=== PATIENT | female | born 1960 | race Caucasian/White ===

== ENCOUNTER → 2020-11-28 | Outpatient (REF) | payer OTHER ==
[2020-11-28 14:05] LABS: HEMATOCRIT 43.4 % (36.0-47.0); HEMOGLOBIN 13.9 g/dl (12.0-15.5); MEAN CORPUSCULAR HEMOGLOBIN 27.1 pg (27.0-33.0); MEAN CORPUSCULAR VOLUME 84.8 fl (80.0-96.0); PLATELET COUNT, AUTOMATED 292 10^3/uL (150-450); RED BLOOD COUNT 5.12 10^6/uL (4.00-5.40); WHITE BLOOD COUNT 5.6 10^3/uL (4.0-10.0)
[2020-11-28 15:19] LABS: ALBUMIN 3.8 GM/DL (3.2-5.2); ALT/SGPT 16 U/L (12-78); BILIRUBIN,TOTAL 0.6 MG/DL (0.2-1.0); BLOOD UREA NITROGEN 12 MG/DL (7-18); CALCIUM LEVEL 9.2 MG/DL (8.8-10.2); CARBON DIOXIDE LEVEL 30 MEQ/L (21-32); CHLORIDE LEVEL 108 MEQ/L (98-107); CHOLESTEROL LEVEL 278 MG/DL (<200); CHOLESTEROL RISK RATIO 4.633 (<5); CREATININE FOR GFR 0.81 MG/DL (0.55-1.30); GLOMERULAR FILTRATION RATE > 60.0 (>45); GLUCOSE, FASTING 94 MG/DL (70-100); HDL CHOLESTEROL 60 MG/DL (>40); LDL CHOLESTEROL 188 MG/DL (<100); NON-HDL-C 218 MG/DL; POTASSIUM SERUM 4.5 MEQ/L (3.5-5.1); SODIUM LEVEL 142 MEQ/L (136-145); TOTAL PROTEIN 7.4 GM/DL (6.4-8.2); TRIGLYCERIDES LEVEL 148 MG/DL (<150)
[2020-11-28 15:28] LABS: HEMOGLOBIN A1c 5.1 %
== END ==
LOC: M PLALAB 10:44
PROVIDERS: ATTEND Obstetrics & Gynecology
DX: Z00.00 Encounter for general adult medical examination without abnormal findings (principal); Z12.4 Encounter for screening for malignant neoplasm of cervix; Z77.9 Other contact with and (suspected) exposures hazardous to health
CPT/HCPCS: 36415; 80053; 80061; 83036; 84443; 85027; 87624; G0123; G0463

== ENCOUNTER → 2020-12-26 | Outpatient (CLI) | payer OTHER ==
--- NOTE | 2020-12-26 10:13 | REP ---
INDICATION: Z12.31 SCREENING MAMMO. COMPARISON: 12/09/2017 as well as other prior exams. TECHNIQUE: ML and CC views bilateral breasts performed with tomosynthesis. FINDINGS: There is mild to moderate heterogeneous fibroglandular tissue bilaterally. A smoothly marginated nodule in the inferolateral left breast anteriorly measures 1.3 cm in maximum diameter. This has mildly increased in size since the prior study. I see no other evidence of discrete nodule or architectural distortion. No clustered microcalcifications are seen. The Volpara volumetric breast density pattern is B. IMPRESSION: BIRADS/ACR category 0, incomplete. Smoothly marginated nodule inferolateral left breast anteriorly 1.3 cm in diameter has mildly increased in size since the prior study. Recommend spot compression views and ultrasound to further evaluate. This patient's Tyrer-Cuzick lifetime breast cancer risk assessment score is 9.9%. This mammogram was interpreted with the aid of an FDA-approved computer-aided detection system. The patient states she had a clinical breast exam in November 2020. The patient letter being requested is M0. RECOMMENDATION: Recommend spot compression views and ultrasound left breast. <Electronically signed by Frederick Crane > 12/26/20 1010
== END ==
LOC: M WHC 08:59
PROVIDERS: ATTEND Obstetrics & Gynecology
DX: Z12.31 Encounter for screening mammogram for malignant neoplasm of breast (principal); N63.20 Unspecified lump in the left breast, unspecified quadrant

== ENCOUNTER → 2021-01-02 | Outpatient (CLI) | payer OTHER ==
--- NOTE | 2021-01-02 12:14 | REP ---
INDICATION: ADDL VIEWS/LEFT BREAST NODULE; LEFT BREAST NODULE. COMPARISON: 12/26/2020. TECHNIQUE: Spot compression views left breast performed as well as a left mL tomographic sequence. Focused left breast ultrasound performed. FINDINGS: There is a smoothly marginated nodule confirmed in the inferolateral left breast near the nipple measuring approximately 1.3 cm in diameter. Focused left breast ultrasound is performed inferolaterally in the anterior left breast. There is a benign cyst at that location corresponding to the nodule on the mammogram. It measures 1.2 x 0.7 x 1.0 cm. IMPRESSION: BIRADS/ACR category 2, benign. The smoothly marginated nodule in the inferolateral left breast corresponds to a benign cyst. Recommend follow-up mammogram in 1 year. This mammogram was interpreted with the aid of an FDA-approved computer-aided detection system. The patient letter being requested is M 1. RECOMMENDATION: Repeat screening mammography recommended 1 year (for women over 40). <Electronically signed by Frederick Crane > 01/02/21 [id number]
[2021-01-02 15:10] LABS: ALBUMIN 3.9 GM/DL (3.2-5.2); ALT/SGPT 17 U/L (12-78); BILIRUBIN,TOTAL 0.7 MG/DL (0.2-1.0); BLOOD UREA NITROGEN 16 MG/DL (7-18); CALCIUM LEVEL 9.7 MG/DL (8.8-10.2); CARBON DIOXIDE LEVEL 30 MEQ/L (21-32); CHLORIDE LEVEL 107 MEQ/L (98-107); CHOLESTEROL LEVEL 201 MG/DL (<200); CHOLESTEROL RISK RATIO 3.092 (<5); CREATININE FOR GFR 0.63 MG/DL (0.55-1.30); GLOMERULAR FILTRATION RATE > 60.0 (>45); GLUCOSE, FASTING 92 MG/DL (70-100); HDL CHOLESTEROL 65 MG/DL (>40); LDL CHOLESTEROL 111 MG/DL (<100); NON-HDL-C 136 MG/DL; POTASSIUM SERUM 4.5 MEQ/L (3.5-5.1); SODIUM LEVEL 141 MEQ/L (136-145); TOTAL PROTEIN 7.2 GM/DL (6.4-8.2); TRIGLYCERIDES LEVEL 124 MG/DL (<150)
== END ==
LOC: M WHC 10:43
PROVIDERS: ATTEND Obstetrics & Gynecology
DX: N60.02 Solitary cyst of left breast (principal); E78.5 Hyperlipidemia, unspecified
CPT/HCPCS: 36415; 76642; 77065; 80053; 80061; G0279

== ENCOUNTER → 2021-05-10 | Outpatient (CLI) | payer OTHER | LOC: M WUC 10:21 | PROVIDERS: ATTEND Student in an Organized Health Care Education/Training Program | DX: E55.9 Vitamin D deficiency, unspecified (principal) ==

== ENCOUNTER → 2021-07-17 | Outpatient (CLI) | payer OTHER ==
[~2021-07-17] MED LIST: ROSU5TAB5
== END ==
LOC: M LABSMTC 11:34
PROVIDERS: ATTEND Anesthesiology
DX: Z01.812 Encounter for preprocedural laboratory examination (principal); Z20.822 Contact with and (suspected) exposure to COVID-19

== ENCOUNTER 2021-07-21 08:57 | Day surgery (SDC) | payer OTHER ==
[~2021-07-21] VITALS: Ht 162.6 cm; Wt 106.3 kg
[~2021-07-21 08:57] MED LIST changes: +LIDOCAINE 2% 100MG/5ML SDV (FOR ANES.) As Ordered ONE; +NS 1,000 ML IV ONE; +propofoL 200 MG/20 ML VIAL As Ordered ONE
--- OUTSIDE RECORDS SUMMARY | 2021-07-21 09:01 | CCD ---
Author Author [facility] Organization [facility] Address Unknown Phone Unavailable Care Team Providers Care Mold Stamper And Repairer Name Role Phone Viktoria Gentile Unavailable PROBLEMS Type Condition ICD9-CM Code [id number] Code Onset Dates Condition S tatus W/U Status Risk SNOMED Code Notes Problem Hyperlipidemia E78.5 Active confirmed 69293 004 Problem Vitamin D deficiency E55.9 Active confirmed [id number] ALLERGIES No Known Allergies ENCOUNTERS from 1960 to 2021-05-10 Encounter Location Date Provider Diagnosis [facility] [id number] [facility] [phone] [place] [address] Apr, Viktoria Gentile Vitamin D deficiency E55.9 IMMUNIZATIONS Vaccine Route Administration Date Status Zoster 50mcg/0.5mL Shingrix IM Intramuscular May 04, 2021 Adm inistered SOCIAL HISTORY Tobacco Use: Social History Observation Description Date Details (start date - stop date) Former Smoker Sex Assigned At : Social History Observation Description Sex Assigned At Unknown Sexual Hx: Question Answer Notes Had sex in the last 12 months (vaginal, oral, or anal)? Yes LMP: 2008 Have you ever had an STD? No with Men only Use protection? No Alcohol Screening: Question Answer Notes Did you have a drink containing alcohol in the past year? No Points 0 Interpretation Negative Tobacco Use: Question Answer Notes Are you a: former smoker How long has it been since you last smoked? > 10 years quit in 1983 REASON FOR REFERRAL No Information VITAL SIGNS No information MEDICATIONS Medication SIG (Take, Route, Frequency, Duration) Notes Start Da te End Date Status Calcium-Vitamin D 600-125 MG-UNIT 1 tablet Orally Once a day for 30 day(s) Apr, Active Rosuvastatin Calcium 5 MG 1 tablet Orally Once a day for 30 day( s) Nov, Active PROCEDURES No Information RESULTS No Results REASON FOR VISIT vitamin D lab result MEDICAL (GENERAL) HISTORY Type Description Date Medical History obesity Surgical History 1985 Surgical History BTL 1991 Surgical History TMJ 1990 Hospitalization History childbirth Goals Section No Information Health Concerns No Information MEDICAL EQUIPMENT No Information MENTAL STATUS No Information FUNCTIONAL STATUS No Information ASSESSMENTS Encounter Date Diagnosis Assessment Notes Treatment Notes Treatm ent Clinical Notes Apr, Vitamin D deficiency (ICD-10 - E55.9) PLAN OF TREATMENT Medication Medication Name Sig Start Date Stop Date Calcium-Vitamin D 600-125 MG-UNIT 1 tablet Orally Once a day for 30 day(s) Apr, Next Appt Details Provider Name:Viktoria Gentile, 2021-08-04 10:00:00 AM, [id number] [facility], , [place], [address], Insurance Providers Payer Name Payer Address Payer Phone Insured Name Patient Relati onship to Insured Coverage Start Date Coverage End Date [facility] [id number] [facility] [id number] [address]AUFFMAN
--- OUTSIDE RECORDS SUMMARY | 2021-07-21 09:01 | CCD ---
Author Author [facility] Organization [facility] Address Unknown Phone Unavailable Care Team Providers Care Carpentry Supervisor Name Role Phone Viktoria Gentile Unavailable PROBLEMS Type Condition ICD9-CM Code [id number] Code Onset Dates Condition S tatus W/U Status Risk SNOMED Code Notes Problem Vitamin D insufficiency E55.9 Active confirmed [id number] Problem Vitamin D deficiency E55.9 Active confirmed 76058531 Problem Hyperlipidemia E78.5 Active confirmed 23338 004 ALLERGIES No Known Allergies ENCOUNTERS from 1960 to 2021-05-05 Encounter Location Date Provider Diagnosis [facility] [id number] [place] [address] [place] [address] 13 Apr, 2021 Viktoria Hurston IMMUNIZATIONS Vaccine Route Administration Date Status Zoster [...] Notes Start Da te End Date Status Rosuvastatin Calcium 5 MG 1 tablet Orally Once a day for 30 day( s) Nov, Active PROCEDURES No Information RESULTS No Results REASON FOR VISIT Update Demographics - Personal Info MEDICAL (GENERAL) HISTORY Type Description Date Medical History obesity Surgical History 1985 Surgical History BTL 1991 Surgical History TMJ 1990 Hospitalization History childbirth Goals Section No Information Health Concerns No Information MEDICAL EQUIPMENT No Information MENTAL STATUS No Information FUNCTIONAL STATUS No Information ASSESSMENTS No Information PLAN OF TREATMENT Next Appt Details Provider Name:Viktoria Gentile, 2021-08-04 10:00:00 AM, [address] [facility], , [place], [address], Insurance Providers Payer Name Payer Address Payer Phone Insured Name Patient Relati onship to Insured Coverage Start Date Coverage End Date [facility] [employer] [address] [place] [id number] GUERO KAUFFMAN
--- OUTSIDE RECORDS SUMMARY | 2021-07-21 09:01 | CCD ---
Author Author [facility] Organization [facility] Address Unknown Phone Unavailable Care Team Providers Care Engine Boss Name Role Phone Viktoria Gentile Unavailable PROBLEMS Type Condition ICD9-CM Code [id number] Code Onset Dates Condition S tatus W/U Status Risk SNOMED Code Notes Problem Vitamin D insufficiency E55.9 Active confirmed 33658860 Problem Vitamin D deficiency E55.9 Active confirmed 74860936 Problem Hyperlipidemia E78.5 Active confirmed 23174 004 ALLERGIES No Known Allergies ENCOUNTERS from 1960 to 2021-05-05 Encounter Location Date Provider Diagnosis [facility] [id number] [place] [address] [place] [address] 13 Apr, 2021 Viktoria Hurston IMMUNIZATIONS Vaccine [...] Results REASON FOR VISIT Update Demographics - Additional Info MEDICAL (GENERAL) HISTORY Type Description Date Medical History obesity Surgical History 1985 Surgical History BTL 1991 Surgical History TMJ 1990 Hospitalization History childbirth Goals Section No Information Health Concerns No Information MEDICAL EQUIPMENT No Information MENTAL STATUS No Information FUNCTIONAL STATUS No Information ASSESSMENTS No Information PLAN OF TREATMENT Next Appt Details Provider Name:Viktoria Gentile, 2021-08-04 10:00:00 AM, [address] [facility], , [place], [address], Insurance Providers Payer Name Payer Address Payer Phone Insured Name Patient Relati onship to Insured Coverage Start Date Coverage End Date [facility] [employer] [address] [place] [id number] GU[address]AUFFMAN
--- OUTSIDE RECORDS SUMMARY | 2021-07-21 09:01 | CCD ---
Author Author [facility] Organization [facility] Address Unknown Phone Unavailable Care Team Providers Care Casino Cage Supervisor Name Role Phone Yancey, Heaven GROCERY SUPERVISOR Unavailable Unavailable Yancey, Heaven GROCERY SUPERVISOR Unavailable Unavailable Yancey, Heaven GROCERY SUPERVISOR Unavailable Unavailable Yancey, Heaven GROCERY SUPERVISOR Unavailable Unavailable Yancey, Heaven GROCERY SUPERVISOR Unavailable Unavailable Yancey, Heaven GROCERY SUPERVISOR Unavailable Unavailable Yancey, Heaven GROCERY SUPERVISOR Unavailable Unavailable Yancey, Heaven GROCERY SUPERVISOR Unavailable Unavailable Yancey, Heaven GROCERY SUPERVISOR Unavailable Unavailable Yancey, Heaven GROCERY SUPERVISOR Unavailable Unavailable Yancey, Heaven GROCERY SUPERVISOR Unavailable Unavailable Yancey, Heaven GROCERY SUPERVISOR Unavailable Unavailable Yancey, Heaven GROCERY SUPERVISOR Unavailable Unavailable Yancey, Heaven GROCERY SUPERVISOR Unavailable Unavailable Yancey, Heaven GROCERY SUPERVISOR Unavailable Unavailable Yancey, Heaven GROCERY SUPERVISOR Unavailable Unavailable Yancey, Heaven GROCERY SUPERVISOR Unavailable Unavailable Yancey, Heaven GROCERY SUPERVISOR Unavailable Unavailable Yancey, Heaven GROCERY SUPERVISOR Unavailable Unavailable Yancey, Heaven GROCERY SUPERVISOR Unavailable Unavailable Yancey, Heaven GROCERY SUPERVISOR Unavailable Unavailable Yancey, Heaven GROCERY SUPERVISOR Unavailable Unavailable Yancey, Heaven GROCERY SUPERVISOR Unavailable Unavailable Yancey, Heaven GROCERY SUPERVISOR Unavailable Unavailable Yancey, Heaven GROCERY SUPERVISOR Unavailable Unavailable Yancey, Kecia Saucedo GROCERY SUPERVISOR Unavailable Unavailable Yancey, Kecia Saucedo GROCERY SUPERVISOR Unavailable Unavailable Yancey, Kecia Saucedo GROCERY SUPERVISOR Unavailable Unavailable Yancey, Kecia Saucedo GROCERY SUPERVISOR Unavailable Unavailable Yancey, Kecia Saucedo GROCERY SUPERVISOR Unavailable Unavailable Yancey, Kecia Saucedo GROCERY SUPERVISOR Unavailable Unavailable Yancey, Kecia Saucedo GROCERY SUPERVISOR Unavailable Unavailable Yancey, Kecia Saucedo GROCERY SUPERVISOR Unavailable Unavailable Yancey, Kecia Saucedo GROCERY SUPERVISOR Unavailable Unavailable Yancey, Kecia Saucedo GROCERY SUPERVISOR Unavailable Unavailable Yancey, Kecia Saucedo GROCERY SUPERVISOR Unavailable Unavailable Re-disclosure Warning The records that you are about to access may contain information from federally-assisted alcohol or drug abuse programs. If such information is present, then the following federally mandated warning applies: This information has been disclosed to you from records protected by federal confidentiality rules (42 CFR part 2). The federal rules prohibit you from making any further disclosure of this information unless further disclosure is expressly permitted by the written consent of the person to whom it pertains or as otherwise permitted by 42 CFR part 2. A general authorization for the release of medical or other information is NOT sufficient for this purpose. The Federal rules restrict any use of the information to criminally investigate or prosecute any alcohol or drug abuse patient.The records that you are about to access may contain highly sensitive health information, the redisclosure of which is protected by Article 27-F of the [facility] Public Health law. If you continue you may have access to information: Regarding HIV / AIDS; Provided by facilities licensed or operated by the [facility] Office of Mental Health; or Provided by the [facility] Office for People With Developmental Disabilities. If such information is present, then the following [facility] mandated warning applies: This information has been disclosed to you from confidential records which are protected by state law. State law prohibits you from making any further disclosure of this information without the specific written consent of the person to whom it pertains, or as otherwise permitted by law. Any unauthorized further disclosure in violation of state law may result in a fine or nursing home sentence or both. A general authorization for the release of medical or other information is NOT sufficient authorization for further disc losure. Encounters Encounter Providers Location Date Indications Data Source(s ) Outpatient Attender: Sheryl Goldberg [facility] Main Office 05/10/2021 07:30:00 AM EDT [facility] [place] [address] [facility] [address] 05/10/2021 12:00:00 AM EDT eCW1 ([facility]) [place] [address] [facility] [address] 05/05/2021 12:00:00 AM EDT eCW1 ([facility]) [place] [address] [facility] [address] 05/05/2021 12:00:00 AM EDT eCW1 ([facility]) Outpatient [address] [facility] [address] 05/04/2021 12:00:00 AM EDT eCW1 ([facility]) [place] [address] [facility] [address] 01/13/2021 12:00:00 AM EDT eCW1 ([facility]) [place] [address] [facility] [address] 12/30/2020 12:00:00 AM EDT eCW1 ([facility]) Unknown [address] [facility] [address] 12/27/2020 12:00:00 AM EDT eCW1 ([facility]) [place] [address] [facility] [address] 12/02/2020 12:00:00 AM EST eCW1 ([facility]) [place] [address] [facility] [place] [address] 11/28/2020 12:00:00 AM EST eCW1 ([facility]) Immunizations Vaccine Date Status Description Data Source(s) Zoster 50mcg/0.5mL Shingrix 05/04/2021 02:26:00 PM EDT completed eCW1 ([facility]) Zoster 50mcg/0.5mL Shingrix 05/04/2021 02:26:00 PM EDT completed eCW1 ([facility]) Zoster 50mcg/0.5mL Shingrix 05/04/2021 02:26:00 PM EDT completed eCW1 ([facility]) Zoster 50mcg/0.5mL Shingrix 05/04/2021 02:26:00 PM EDT completed eCW1 ([facility]) COVID-19 VACCINE Moderna 01/03/2021 12:00:00 AM EDT completed [facility] Vaccine Series Complete: YESThis Data wa s Submitted to [facility] [address]. COVID-19 VACCINE, MRNA-1273, LNP-S (MODERNA)/PF 01/03/2021 1 2:00:00 AM EDT completed [facility] COVID-19 VACCINE Moderna 12/04/2020 12:00:00 AM EST completed [facility] Vaccine Series Complete: NOThis Data was Submitted to [facility] [address]. COVID-19 VACCINE, MRNA-1273, LNP-S (MODERNA)/PF 12/04/2020 1 2:00:00 AM EST completed [facility] Medications Medication Brand Name Start Date Product Form Dose Route Admi nistrative Instructions Pharmacy Instructions Status Indications Reaction Description Data Source(s) SUPREP BOWEL PREP KIT 17.5-3.13-1.6 gram SODIUM, POTASSIUM,M AG SULFATES 06/27/2021 12:00:00 AM EDT recon soln 354 DIRECTED DAYDYA SMITH SOLD: 07/04/2021 [facility] Calcium-Vitamin D 600-125 MG-UNIT Calcium-Vitamin D 600-125 MG-UNIT 05/10/2021 12:00:00 AM EDT 1.0 {tablet} active Calcium-Vitamin D 600-125 MG-UNIT eCW1 ([facility]) 5 mg 01/31/2021 12:00:00 AM EDT tablet 30 TAKE ONE TABLET BY MOUTH EVERY DAY TAKE ONE TABLET BY MOUTH EVERY DAY SOLD: 01/31/2021 [facility] 5 mg 01/31/2021 12:00:00 AM EDT tablet 30 TAKE ONE TABLET BY MOUTH EVERY DAY TAKE ONE TABLET BY MOUTH EVERY DAY SOLD: 06/08/2021 [facility] 5 mg 01/31/2021 12:00:00 AM EDT tablet 30 TAKE ONE TABLET BY MOUTH EVERY DAY TAKE ONE TABLET BY MOUTH EVERY DAY SOLD: 05/12/2021 [facility] Rosuvastatin calcium 5 MG Oral Tablet Rosuvastatin Liban cium 5 MG Rosuvastatin Calcium 5 MG 12/07/2020 12:00:00 AM EDT 1.0 {tablet} active Rosuvastatin Calcium 5 MG eCW1 ([facility]) Rosuvastatin calcium 5 MG Oral Tablet Rosuvastatin Liban cium 5 MG Rosuvastatin Calcium 5 MG 12/07/2020 12:00:00 AM EDT 1.0 {tablet} active Rosuvastatin Calcium 5 MG eCW1 ([facility]) Rosuvastatin calcium 5 MG Oral Tablet Rosuvastatin Liban cium 5 MG Rosuvastatin Calcium 5 MG 12/07/2020 12:00:00 AM EDT 1.0 {tablet} active Rosuvastatin Calcium 5 MG eCW1 ([facility]) 5 mg 12/07/2020 12:00:00 AM EDT tablet 30 TAKE ONE TABLET BY MOUTH EVERY DAY TAKE ONE TABLET BY MOUTH EVERY DAY SOLD: 12/07/2020 [facility] Rosuvastatin calcium 5 MG Oral Tablet Rosuvastatin Liban cium 5 MG Rosuvastatin Calcium 5 MG 12/07/2020 12:00:00 AM EDT 1.0 {tablet} active Rosuvastatin Calcium 5 MG eCW1 ([facility]) 5 mg 12/07/2020 12:00:00 AM EDT tablet 30 TAKE ONE TABLET BY MOUTH EVERY DAY TAKE ONE TABLET BY MOUTH EVERY DAY SOLD: 01/03/2021 [facility] Rosuvastatin calcium 5 MG Oral Tablet Rosuvastatin Liban cium 5 MG Rosuvastatin Calcium 5 MG 12/07/2020 12:00:00 AM EDT 1.0 {tablet} active Rosuvastatin Calcium 5 MG eCW1 ([facility]) Rosuvastatin calcium 5 MG Oral Tablet Rosuvastatin Liban cium 5 MG Rosuvastatin Calcium 5 MG 12/07/2020 12:00:00 AM EDT 1.0 {tablet} active Rosuvastatin Calcium 5 MG eCW1 ([facility]) Rosuvastatin calcium 5 MG Oral Tablet Rosuvastatin Liban cium 5 MG Rosuvastatin Calcium 5 MG 12/07/2020 12:00:00 AM EDT 1.0 {tablet} active Rosuvastatin Calcium 5 MG eCW1 ([facility]) Rosuvastatin calcium 5 MG Oral Tablet Rosuvastatin Liban cium 5 MG Rosuvastatin Calcium 5 MG 12/07/2020 12:00:00 AM EDT 1.0 {tablet} active Rosuvastatin Calcium 5 MG eCW1 ([facility]) 600 mg 11/18/2020 12:00:00 AM EST tablet 40 TAKE 1 TABLET FOUR TIMES A DAY NEEDED TAKE 1 TABLET FOUR TIMES A DAY NEEDED SOLD: 11/18/2020 [facility] 5-325 mg 11/18/2020 12:00:00 AM EST tablet 10 TAKE 1 TABLET EVERY 4 TO 6 HOURS NEEDED FOR PAIN MAXIMUM DAILY DOSE = 5 TABLETS TAKE 1 TABLET EVERY 4 TO 6 HOURS NEEDED FOR PAIN MAXIMUM DAILY DOSE = 5 TABLETS SOLD: 11/18/2020 [facility] 500 mg 11/18/2020 12:00:00 AM EST capsule 10 TAKE ONE CAPSULE BY MOUTH EVERY 8 HOURS TAKE ONE CAPSULE BY MOUTH EVERY 8 HOURS SOLD: 11/18/2020 [facility] 0.12 % 11/18/2020 12:00:00 AM EST mouthwash 473 RINSE WITH 1 CAPFUL THREE TIMES A DAY BEGINNING TOMORROW RINSE WITH 1 CAPFUL THREE TIMES A DAY BE GINNING TOMORROW SOLD: 11/18/2020 [facility] 0.12 % 07/15/2020 12:00:00 AM EDT mouthwash 473 USE 1 CAPFUL TO RINSE AND SPIT THREE TIMES A DAY BEGINNING TOMORROW USE 1 CAPFUL TO RINSE AND SPIT THREE TIMES A DAY BEGINNING TOMORROW SOLD: 07/15/2020 [facility] 5-325 mg 07/15/2020 12:00:00 AM EDT tablet 10 TAKE ONE TABLET BY MOUTH EVERY 4 TO 6 HOURS NEEDED FOR PAIN MAXIMUM DAILY DOSE = 5 TABLETS TAKE ONE TABLET BY MOUTH EVERY 4 TO 6 HOURS NEEDED FOR PAIN MAXIMUM DAILY DOSE = 5 TABLETS SOLD: 07/15/2020 [facility] 600 mg 07/15/2020 12:00:00 AM EDT tablet 40 TAKE ONE TABLET BY MOUTH FOUR TIMES A DAY NEEDED TAKE ONE TABLET BY MOUTH FOUR TIMES A DAY NEEDED SO LD: 07/15/2020 [facility] 500 mg 07/15/2020 12:00:00 AM EDT capsule 10 TAKE ONE CAPSULE BY MOUTH EVERY 8 HOURS TAKE ONE CAPSULE BY MOUTH EVERY 8 HOURS SOLD: 07/15/2020 [facility] Insurance Providers Payer name Policy type / Coverage type Policy ID Covered green party ID Covered green party's relationship to mejia Policy Mejia Plan Information [facility] [id number] [facility] [id number] Problems, Conditions, and Diagnoses Code Display Name Description Problem Type Effective Dates Data Source(s) E55.9 [id number] Vitamin D deficiency Problem 05/04/2021 12:0 0:00 AM EDT eCW1 ([facility]) E55.9 [id number] Vitamin D insufficiency Problem 05/04/2021 1 2:00:00 AM EDT eCW1 ([facility]) E78.5 [id number] Hyperlipidemia Problem 12/02/2020 12:00:00 A M EST eCW1 ([facility]) Surgeries/Procedures Procedure Description Date Indications Data Source(s) ACNE SURGERY 05/10/2021 12:00:00 AM EDT M EDENT ([facility]) OFFICE CONSULTATION NEW/ESTAB PATIENT 60 MIN 12:00:00 AM EDT MEDENT ([facility]) Imm: Shingrix 50mcg/0.5mL IM Zoster 05/04/2021 12:00:0 0 AM EDT eCW1 ([facility]) Results ID Date Data Source TSH 11/28/2020 12:00:00 AM EST eCW1 [facility] Name Value Range Interpretation Code Description Data Isaura rce(s) Supporting Document(s) 2.080 0.358-3.740 THYROID STIMULATING HORM ONE eCW1 ([facility]) ID Date Data Source [id number] 11/28/2020 12:00:00 AM EST eCW1 ([facility]) Name Value Range Interpretation Code Description Data Isaura rce(s) Supporting Document(s) Hemoglobin A1c/Hemoglobin.total in Blood 5.1 HEMOGLOBIN A1c eCW1 ([facility]) ID Date Data Source Comprehensive Metabolic Profile (CMP) 11/28/2020 12:00:00 AM EST eCW1 ([facility]) Name Value Range Interpretation Code Description Data Isaura rce(s) Supporting Document(s) 94 70-100 GLUCOSE, FASTING eCW1 ([facility]) 12 7-18 BLOOD UREA NITROGEN eCW1 ([facility]) 142 136-145 SODIUM LEVEL eCW1 ([facility]) > 60.0 >45 GLOMERULAR FILTRATION RATE eCW 1 ([facility]) 0.81 0.55-1.30 CREATININE FOR GFR eCW1 ([facility]) 30 21-32 CARBON DIOXIDE LEVEL eCW1 ([facility]) 9.2 8.8-10.2 CALCIUM LEVEL eCW1 ([facility]) 108 98-107 CHLORIDE LEVEL eCW1 ([facility]) 4.5 3.5-5.1 POTASSIUM SERUM eCW1 ([facility]) 0.6 0.2-1.0 BILIRUBIN,TOTAL eCW1 ([facility]) 16 12-78 ALT/SGPT eCW1 ([facility]) 89 45-117 ALKALINE PHOSPHATASE eCW1 ([facility]) 9 7-37 AST/SGOT eCW1 ([facility]) 1.1 1.2-2.2 ALBUMIN/GLOBULIN RATIO eCW1 ([facility]) 3.8 3.2-5.2 ALBUMIN eCW1 ([facility]) 7.4 6.4-8.2 TOTAL PROTEIN eCW1 ([facility]) ID Date Data Source CBC - Complete Blood Count 11/28/2020 12:00:00 AM EST eCW1 ( [facility]) Name Value Range Interpretation Code Description Data Isaura rce(s) Supporting Document(s) 5.6 4.0-10.0 WHITE BLOOD COUNT eCW1 ([facility]) 84.8 80.0-96.0 MEAN CORPUSCULAR VOLUME e CW1 ([facility]) 13.9 12.0-15.5 HEMOGLOBIN eCW1 ([facility]) 43.4 36.0-47.0 HEMATOCRIT eCW1 ([facility]) 5.12 4.00-5.40 RED BLOOD COUNT eCW1 ([facility]) 12.4 11.5-14.5 RED CELL DISTRIBUTION WID TH eCW1 ([facility]) 27.1 27.0-33.0 MEAN CORPUSCULAR HEMOGLOB IN eCW1 ([facility]) 32.0 32.0-36.5 MEAN CORPUSCULAR HGB CONC eCW1 ([facility]) 292 150-450 PLATELET COUNT, AUTOMATED eCW1 ([facility]) Procedure Social History Code Duration Value Status Description Data Source(s ) Smoking 05/04/2021 12:00:00 AM EDT Former Smoker completed Former Smoker eCW1 ([facility]) Smoking 05/04/2021 12:00:00 AM EDT Former Smoker completed Former Smoker eCW1 ([facility]) Smoking 05/04/2021 12:00:00 AM EDT Former Smoker completed Former Smoker eCW1 ([facility]) Smoking 05/04/2021 12:00:00 AM EDT Former Smoker completed Former Smoker eCW1 ([facility]) Smoking 11/28/2020 12:00:00 AM EST Former Smoker completed Former Smoker eCW1 ([facility]) Smoking 11/28/2020 12:00:00 AM EST Former Smoker completed Former Smoker eCW1 ([facility]) Smoking 11/28/2020 12:00:00 AM EST Former Smoker completed Former Smoker eCW1 ([facility]) Smoking 11/28/2020 12:00:00 AM EST Former Smoker completed Former Smoker eCW1 ([facility]) Smoking 11/28/2020 12:00:00 AM EST Former Smoker completed Former Smoker eCW1 ([facility]) Vital Signs ID Date Data Source UNK Name Value Range Interpretation Code Description Data Source(s) Systolic blood pressure 132 mm[Hg] 132 mm[Hg] M EDENT ([facility]) Diastolic blood pressure 68 mm[Hg] 68 mm[Hg] MEDENT ([facility]) Body weight 234.00 [lb_av] 234.00 [lb_av] MEDEN T ([facility]) Body height 64 [in_i] 64 [in_i] MEDENT ([facility]) 5'4" Body mass index (BMI) [Ratio] 40.2 kg/m2 40.2 k g/m2 MEDENT ([facility]) Body weight 234 [lb_av] 234 [lb_av] eCW1 ([facility]) Body weight 106.14 kg 106.14 kg eCW1 ([facility] Body height 64 [in_i] 64 [in_i] eCW1 ([facility]) Body mass index (BMI) [Ratio] 40.16 kg/m2 40.16 kg/m2 W1 ([facility]) Heart rate 64 /min 64 /min eCW1 ([facility]) Respiratory rate 18 /min 18 /min eCW1 ([facility]) Body temperature 98.6 [degF] 98.6 [degF] eCW1 ( [facility]) Systolic blood pressure 148 mm[Hg] 148 mm[Hg] e CW1 ([facility]) Diastolic blood pressure 76 mm[Hg] 76 mm[Hg] eCW1 ([facility]) Body weight 235 [lb_av] 235 [lb_av] eCW1 ([facility]) Body height 64 [in_i] 64 [in_i] eCW1 ([facility]) Body mass index (BMI) [Ratio] 40.33 kg/m2 40.33 kg/m2 eCW1 ([facility]) Systolic blood pressure 138 mm[Hg] 138 mm[Hg] e CW1 ([facility]) Diastolic blood pressure 88 mm[Hg] 88 mm[Hg] eCW1 ([facility]) Patient Treatment Plan of Care Planned Activity Planned Date Details Description Data Source (s) Calcium-Vitamin D 600-125 MG-UNIT 05/10/2021 12:00:00 AM EDT eCW1 ([facility]) Rosuvastatin calcium 5 MG Oral Tablet 12/07/2020 12:00:00 AM EDT eCW1 ([facility]) Rosuvastatin calcium 5 MG Oral Tablet 12/07/2020 12:00:00 AM EDT eCW1 ([facility]) Rosuvastatin calcium 5 MG Oral Tablet 12/07/2020 12:00:00 AM EDT eCW1 ([facility]) Rosuvastatin calcium 5 MG Oral Tablet 12/07/2020 12:00:00 AM EDT eCW1 ([facility])
--- OUTSIDE RECORDS SUMMARY | 2021-07-21 09:01 | CCD ---
Author Author [facility] Organization [facility] Address Unknown Phone Unavailable Care Team Providers Care Food Preparer Name Role Phone Viktoria Gentile Unavailable PROBLEMS Type Condition ICD9-CM Code [id number] Code Onset Dates Condition S tatus W/U Status Risk SNOMED Code Notes Problem Vitamin D insufficiency E55.9 Active confirmed 66502623 Problem Vitamin D deficiency E55.9 Active confirmed 62327027 Problem Hyperlipidemia E78.5 Active confirmed 56491 004 ALLERGIES No Known Allergies ENCOUNTERS from 1960 to 2021-05-05 Encounter Location Date Provider Diagnosis [facility] [id number] [place] [address] [place] [address] 12 Apr, 2021 Viktoria Seferino Encounter to establish care Z76.89 ; Vitamin D deficiency E55.9 ; Screening for malignant neoplasm of colon Z12.11 ; Skin lesion L98.9 ; Swelling of lower extremity M79.89 and Encounter for immunization Z23 IMMUNIZATIONS Vaccine Route Administration Date Status Zoster 50mcg/0.5mL Shingrix IM Intramuscular May 04, 2021 Adm inistered SOCIAL HISTORY Tobacco Use: Social History Observation Description Date Details (start date - stop date) Former Smoker Sex Assigned At : Social History Observation Description Sex Assigned At Unknown Sexual Hx: Question Answer Notes Had sex in the last 12 months (vaginal, oral, or anal)? Yes LMP: 2009 Have you ever had an STD? No with Men only Use protection? No Alcohol Screening: Question Answer Notes Did you have a drink containing alcohol in the past year? No Points 0 Interpretation Negative Tobacco Use: Question Answer Notes Are you a: former smoker How long has it been since you last smoked? > 10 years quit in 1983 REASON FOR REFERRAL from 1960 to 2021-05-05 Reason 60 y old F due for routine c olonoscopy screening. Diagnosis 1 Screening for malignant neop lasm of colon (Z12.11) [facility] Referring Provider First Name Viktoria Referring Provider Last Name Seferino Referring Provider Specialty Family Medicine Referred Provider Paddy Joyner Referred Provider Specialty Gastroenterology Referral Priority Routine General Notes Ashly Durham 05/04/2021 5:1 1:54 PM > Sent Reason 60 y old F with skin lesion to left forearm; would like to establish with Derm for further evaluation. Diagnosis 1 Skin lesion (L98.9) [facility] Referring Provider First Name Viktoria Referring Provider Last Name Seferino Referring Provider Specialty Family Medicine Referred Provider Savita EscobedoPractioners Referred Provider Specialty Dermatology Referral Priority Routine General Notes Ashly Durham 05/04/2021 5:1 1:08 PM > Sent VITAL SIGNS Weight 234 lbs Apr, Weight-kg 106.14 kg Apr, Height 64 in Apr, BMI 40.16 kg/m2 Apr, Heart Rate 64 /min Apr, Respiratory Rate 18 /min Apr, Temperature 98.6 degrees Fahrenheit Apr, Oximetry 94 Apr, Blood pressure systolic 148 mm Hg Apr, Blood pressure diastolic 76 mm Hg Apr, MEDICATIONS Medication SIG (Take, Route, Frequency, Duration) Notes Start Da te End Date Status Rosuvastatin Calcium 5 MG 1 tablet Orally Once a day for 30 day( s) Nov, Active PROCEDURES from 1960 to 2021-05-05 Procedure Date Ordered Result Body Site Imm: Shingrix 50mcg/0.5mL IM Zoster 2021-05-04 N/A RESULTS No Results REASON FOR VISIT est care MEDICAL (GENERAL) HISTORY Type Description Date Medical History obesity Surgical History 1985 Surgical History BTL 1991 Surgical History TMJ 1990 Hospitalization History childbirth Goals Section No Information Health Concerns No Information MEDICAL EQUIPMENT No Information MENTAL STATUS No Information FUNCTIONAL STATUS No Information ASSESSMENTS Encounter Date Diagnosis Assessment Notes Treatment Notes Treatm ent Clinical Notes Apr, Encounter to establish care (ICD-10 - Z76.89) 12 Aug, 2021 Vitamin D deficiency (ICD-10 - E55.9) Pt reports her Vitamin D was very low in the past. Would like re-checked at this time. Apr, Screening for malignant neoplasm of colon (ICD-1 0 - Z12.11) Last colonoscopy at age 49; was normal. Pt agreeable for colonoscopy at this time. Apr, Skin lesion (ICD-10 - L98.9) Pt points out spot at left forearm that has been present for some time. Pt has lived in [place] and reports hx of lots of sun exposure to that area and family hx of skin cancer. Will refer to Dermatology for further evaluation. Apr, Swelling of lower extremity (ICD-10 - M79.89) Pt reports swelling of bilateral LE for many years (since childhood). Denies any associated SOB or CP. Pt has had echocardiogram and lower extremity Dopplers in the past. Will request records from [facility] in [place] where she was previously. Advised low-salt diet, increased water intake, compression stockings, and keeping legs elevated for majority of the day. Advised follow-up in 3 months, if no improvement in lower leg swelling and previous studies were normal, will consider starting diuretic. Apr, Encounter for immunization (ICD-10 - Z23) Patient Educated with: Zoster (Recombinant) [id number] (Zoster (Recombinant) [id number].pdf) PLAN OF TREATMENT Treatment Notes Assessment Notes Clinical Notes Vitamin D deficiency Pt reports her Rosemary min D was very low in the past. Would like re-checked at this time. Screening for malignant neoplasm of colon Last colonoscopy at age 49; was normal. Pt agreeable for colonoscopy at this time. Skin lesion Pt points out spot a t left forearm that has been present for some time. Pt has lived in [place] and reports hx of lots of sun exposure to that area and family hx of skin cancer. Will refer to Dermatology for further evaluation. Swelling of lower extremity Pt reports s welling of bilateral LE for many years (since childhood). Denies any associated SOB or CP. Pt has had echocardiogram and lower extremity Dopplers in the past. [facility] [place] where [facility] was [facility]. Advised low-salt diet, increased water intake, compression stockings, and keeping legs elevated for majority of the day. Advised follow-up in 3 months, if no improvement in lower leg swelling and previous studies were normal, will consider starting diuretic. Encounter for immunization Patient Educated with: Zost er (Recombinant) [id number] (Zoster (Recombinant) [id number].pdf) Treatment Notes Test Name Order Date VITAMIN D 25-HYDROXY 2021-05-04 Referrals Referral Date Details 60 y old F due for routine c olonoscopy screening., Paddy Joyner 60 y old F with skin lesion to left forearm; would like to establish with Derm for further evaluation., Practioners [facility] Nurse Next Appt Details 3 Months Reason:f/u LE swelling Provider Name:Viktoria Gentile, 2021-08-04 10:00:00 AM, [id number] [facility], , [place], [address], Follow Up:3 Monthsf/u LE swelling Insurance Providers Payer Name Payer Address Payer Phone Insured Name Patient Relati onship to Insured Coverage Start Date Coverage End Date [facility] [address] [place] [id number] GUERO KAUFFMAN
--- OUTSIDE RECORDS SUMMARY | 2021-07-21 09:01 | CCD | Continuity of Care Document ---
Author Author Stacey PFEIFFER F.N.P. Organization Unknown Address [address], [address] [place] [address] Phone [phone] Care Team Providers Care Youth Officer Name Role Phone Viktoria Gentile MD AUTM [phone] Problems Description No Information Available Social History Type Date Description Comments Sex Unknown Tobacco Use Start: Unknown End: Unknown Former Cigarette Smo ker quit in 1983 ETOH Use Rarely consumes alcohol Sun Exposure moderate amount of sun exposure Sun Exposure Has never used tanning bed Sun Exposure Has experienced blistering from sunburns Sun Exposure Use < 15 SPF Allergies, Adverse Reactions, Alerts Description No Known Drug Allergies Medications Active Medications SIG Qnty Indications Ordering Provide r Date Rosuvastatin Calcium Unknown 00/0 Immunizations Description No Information Available Vital Signs Date Vital Result Comment 05/10/2021 7:41am BP Systolic 132 mmHg BP Diastolic 68 mmHg Weight 234.00 lb Height 64 inches 5'4" BMI (Body Mass Index) 40.2 kg/m2 Results Description No Information Available Procedures Date Code Description Status 05/10/2021 11040 Office Consultation Level 4 Comp leted 05/10/2021 42766 Acne Surgery Completed Medical Devices Description No Information Available Encounters Type Date Location Provider Dx Diagnosis Office Visit 05/10/2021 7:30a Main Office Sheryl Pfeiffer F.N.P. D22.5 Melanocytic nevi of trunk D22.72 Melanocytic nevi of left low er limb, including hip D22.71 Melanocytic nevi of right lo wer limb, including hip D22.61 Melanocytic nevi of right up per limb, including shoulder D22.62 Melanocytic nevi of left upp er limb, including shoulder L81.4 Other melanin hyperpigmentat ion D23.61 Oth benign neoplasm skin/ ri ght upper limb, inc shoulder L85.3 Xerosis cutis R60.0 Localized edema L82.1 Other seborrheic keratosis L70.0 Acne vulgaris Z12.83 Encounter for screening for malignant neoplasm of skin Assessments Date Code Description Provider 05/10/2021 D22.5 Melanocytic nevi of trunk Elizabether franklin Nova'alberto, F.N.P. 05/10/2021 D22.72 Melanocytic nevi of left lower l imb, including hip Sheryl O'alberto, F.N.P. 05/10/2021 D22.71 Melanocytic nevi of right lower limb, including hip Sheryl O'alberto, F.N.P. 05/10/2021 D22.61 Melanocytic nevi of right upper limb, including shoulder Sheryl Nova'alberto, F.N.P. 05/10/2021 D22.62 Melanocytic nevi of left upper l imb, including shoulder Sheryl Nova'alberto, F.N.P. 05/10/2021 L81.4 Other melanin hyperpigmentation Sheryl Nova'alberto, F.N.P. 05/10/2021 D23.61 Other benign neoplas m of skin of right upper limb, including shoulder Sheryl Nova'alberto, F.N.P. 05/10/2021 L85.3 Xerosis cutis Sheryl Ford n, F.N.P. 05/10/2021 R60.0 Localized edema Sheryl Ford n, F.N.P. 05/10/2021 L82.1 Other seborrheic keratosis Sammie Pfeiffer, F.N.P. 05/10/2021 L70.0 Acne vulgaris Sheryl Ford n, F.N.P. 05/10/2021 Z12.83 Encounter for screening for nikita gnant neoplasm of skin Sheryl Pfeiffer F.N.P. Plan of Treatment Future Appointment(s):* 05/10/2022 8:00 am - KAREN Brown at Main Office 05/10/2021 - [facility].* D22.5 Melanocytic nevi of trunk* Comments:* Nevi on trunk appear healthy. Monitor for changes. Krause angiomas - reassurance Sun protection and sunscreen use discussed. Discussed if any moles change in shape or color, itch, bleed or burn to contact the office for evaluation sooner than their interval appointment. * D22.72 Melanocytic nevi of left lower limb, including hip* Comments:* Nevi L leg appear healthy. Monitor for changes. * D22.71 Melanocytic nevi of right lower limb, including hip* Comments:* Nevi located on R leg appear healthy. Monitor for changes. * D22.61 Melanocytic nevi of right upper limb, including shoulder* Comments:* Nevi located on R arm appears healthy. Monitor for changes. DF - Reassurance. * D22.62 Melanocytic nevi of left upper limb, including shoulder* Comments:* Nevi on L arm appear healthy. Monitor for changes. * L81.4 Other melanin hyperpigmentation* Comments:* Solar lentigines - ReassuranceDiscussed that solar lentignes appear from the sun that was received years agoSunscreen use and sun protection discussed. * D23.61 Other benign neoplasm of skin of right upper limb, including shoulder* Comments:* DF - Reassurance. * L85.3 Xerosis cutis* Comments:* Mild cleansers and moisturizers. * R60.0 Localized edema* Comments:* Follows with PCP. * L82.1 Other seborrheic keratosis* Comments:* Reassurance Discussed seborrheic keratoses are benign warty growths on the skin that appear with age and that they are not contagious The precise cause of Jorge K's is unknown although can run in families so genes may play a role Discussed if ever becomes irritated to call for a removal appointment * L70.0 Acne vulgaris* Comments:* Removed 1 open comedone today. Stacey tolerated procedure well. Call with problems. * Z12.83 Encounter for screening for malignant neoplasm of skin* Comments:* See above * Follow up:* Yearly/PRN - [facility] Functional Status Description No Information Available Mental Status Description No Information Available Referrals Description No Information Available
--- NOTE | 2021-07-21 10:54 | ROOR ---
Patient Name: Stacey Hassan Procedure Date: 07/21/2021 10:04 AM Date of : 1960 Age: 60 Room: [facility] Gender: Female Note Status: Finalized Procedure: Colonoscopy Indications: Screening for colorectal malignant neoplasm Providers: Aubrey Ann MD Referring MD: Viktoria Gentile Md, IS[facility]ELLECH[facility], Admin. Requesting Provider: Medicines: Monitored Anesthesia Care Complications: No immediate complications. Procedure: Pre-Anesthesia Assessment: - Prior to the procedure, a History and Physical was performed, and patient medications and allergies were reviewed. The patient is competent. The risks and benefits of the procedure and the sedation options and risks were discussed with the patient. All questions were answered and informed consent was obtained. Patient identification and proposed procedure were verified by the physician, the nurse and the anesthesiologist in the procedure room. Mental Status Examination: alert and oriented. Airway Examination: normal oropharyngeal airway and neck mobility. Respiratory Examination: clear to auscultation. CV Examination: normal. Prophylactic Antibiotics: The patient does not require prophylactic antibiotics. Prior Anticoagulants: The patient has taken no previous anticoagulant or antiplatelet agents. ASA Grade Assessment: II - A patient with mild systemic disease. After reviewing the risks and benefits, the patient was deemed in satisfactory condition to undergo the procedure. The anesthesia plan was to use monitored anesthesia care (MAC). Immediately prior to administration of medications, the patient was re-assessed for adequacy to receive sedatives. The heart rate, respiratory rate, oxygen saturations, blood pressure, adequacy of pulmonary ventilation, and response to care were monitored throughout the procedure. The physical status of the patient was re-assessed after the procedure. The Colonoscope was introduced through the anus and advanced to the cecum, identified by appendiceal orifice and ileocecal valve. The colonoscopy was performed without difficulty. The patient tolerated the procedure well. The quality of the bowel preparation was good. The terminal ileum, ileocecal valve, appendiceal orifice, and rectum were photographed. Scope insertion time was 2 minutes. Scope withdrawal time was 9 minutes. The total duration of the procedure was 14 minutes. Findings: Hemorrhoids were found on perianal exam. A 8 mm polyp was found in the ascending colon. The polyp was sessile. The polyp was removed with a cold snare. Resection and retrieval were complete. Verification of patient identification for the specimen was done by the physician and nurse using the patient's name, date and medical record number. Estimated blood loss was minimal. Multiple small and large-mouthed diverticula were found in the sigmoid colon. There was no evidence of diverticular bleeding. Non-bleeding external and internal hemorrhoids were found during retroflexion. The hemorrhoids were medium-sized. Impression: - Hemorrhoids found on perianal exam. - One 8 mm polyp in the ascending colon, removed with a cold snare. Resected and retrieved. - Moderate diverticulosis in the sigmoid colon. There was no evidence of diverticular bleeding. - Non-bleeding external and internal hemorrhoids. Recommendation: - Patient has a contact number available for emergencies. The signs and symptoms of potential delayed complications were discussed with the patient. Return to normal activities tomorrow. Written discharge instructions were provided to the patient. - High fiber diet. - Continue present medications. - Await pathology results. - Repeat colonoscopy in 5 years for surveillance based on pathology results. - Return to GI clinic in 2 weeks. - Return to primary care physician. Procedure Code(s): --- Professional --- 15328, Colonoscopy, flexible; with removal of tumor(s), polyp(s), or other lesion(s) by snare technique Diagnosis Code(s): --- Professional --- Z12.11, Encounter for screening for malignant neoplasm of colon K64.8, Other hemorrhoids K63.5, Polyp of colon K57.30, Diverticulosis of large intestine without perforation or abscess without bleeding CPT copyright 2019 [employer]. All rights reserved. The codes documented in this report are preliminary and upon gemologist review may be revised to meet current compliance requirements. Aubrey Ann MD Aubrey Ann MD 07/21/2021 10:53:42 AM Electronically signed by Aubrey Ann MD Number of Addenda: 0 Note Initiated On: 07/21/2021 10:04 AM Estimated Blood Loss: Estimated blood loss was minimal.
[2021-07-21 11:00] VITALS: BP 129/90
== END 2021-07-21 11:05 | disposition home or self-care (01) ==
LOC: M OPP 08:57
PROVIDERS: ATTEND Internal Medicine Gastroenterology
DX: Z12.11 Encounter for screening for malignant neoplasm of colon (principal); K63.5 Polyp of colon; K57.30 Diverticulosis of large intestine without perforation or abscess without bleeding; K64.8 Other hemorrhoids; Z79.899 Other long term (current) drug therapy; Z80.41 Family history of malignant neoplasm of ovary

== ENCOUNTER → 2021-09-26 | Outpatient (CLI) | payer OTHER ==
[~2021-09-26] MED LIST changes: -LIDOCAINE 2% 100MG/5ML SDV (FOR ANES.) As Ordered ONE; -NS 1,000 ML IV ONE; -propofoL 200 MG/20 ML VIAL As Ordered ONE
--- NOTE | 2021-09-26 17:58 | REPVR ---
PROCEDURE INFORMATION: Exam: MR Head Without Contrast Exam date and time: 09/26/2021 3:26 PM Age: 61 years old Clinical indication: Visual disturbance; Additional info: Loss of vision TECHNIQUE: Imaging protocol: MR of the head without contrast. COMPARISON: No relevant prior studies available. FINDINGS: Brain: Mild scattered nonspecific T2/FLAIR hyperintensities of the periventricular and deep subcortical white matter, most likely secondary to chronic small vessel ischemic change. No intracranial hemorrhage or extra-axial fluid collection. No evidence of mass effect or midline shift. No restricted diffusion to suggest acute infarct. Cerebral ventricles: Mild prominence of the ventricles and sulci, likely attributed to parenchymal volume loss. Bones/joints: Unremarkable. Paranasal sinuses: Normal as visualized. No acute sinusitis. Mastoid air cells: No mastoid effusion. Orbital cavity: Unremarkable. Soft tissues: Unremarkable. IMPRESSION: 1. No acute intracranial pathology. 2. Chronic findings, as above. Electronically signed by: Mckinley Weiner On 09/26/2021 17:58:16 PM
== END ==
LOC: M PLAIMG 14:21
PROVIDERS: ATTEND Student in an Organized Health Care Education/Training Program
DX: R90.82 White matter disease, unspecified (principal); H54.7 Unspecified visual loss

== ENCOUNTER → 2021-11-02 | Outpatient (CLI) | payer OTHER | LOC: M PLALAB 10:44 | PROVIDERS: ATTEND Student in an Organized Health Care Education/Training Program | DX: E55.9 Vitamin D deficiency, unspecified (principal) ==

== ENCOUNTER → 2021-11-02 | Outpatient (CLI) | payer OTHER ==
[2021-11-02 13:55] LABS: ALBUMIN 3.6 GM/DL (3.2-5.2); ALT/SGPT 26 U/L (12-78); BILIRUBIN,TOTAL 0.8 MG/DL (0.2-1.0); BLOOD UREA NITROGEN 11 MG/DL (7-18); CALCIUM LEVEL 9.2 MG/DL (8.8-10.2); CARBON DIOXIDE LEVEL 29 MEQ/L (21-32); CHLORIDE LEVEL 106 MEQ/L (98-107); CHOLESTEROL LEVEL 189 MG/DL (<200); CHOLESTEROL RISK RATIO 3.258 (<5); CREATININE FOR GFR 0.72 MG/DL (0.55-1.30); GLOMERULAR FILTRATION RATE > 60.0 (>45); GLUCOSE, FASTING 94 MG/DL (70-100); HDL CHOLESTEROL 58 MG/DL (>40); LDL CHOLESTEROL 99 MG/DL (<100); NON-HDL-C 131 MG/DL; POTASSIUM SERUM 4.3 MEQ/L (3.5-5.1); SODIUM LEVEL 142 MEQ/L (136-145); TRIGLYCERIDES LEVEL 158 MG/DL (<150)
== END ==
LOC: M PLALAB 10:42
PROVIDERS: ATTEND Obstetrics & Gynecology
DX: E78.5 Hyperlipidemia, unspecified (principal)

== ENCOUNTER → 2022-04-11 | Outpatient (CLI) | payer OTHER | LOC: M WHC 15:24 | PROVIDERS: ATTEND Obstetrics & Gynecology | DX: Z12.31 Encounter for screening mammogram for malignant neoplasm of breast (principal); N63.10 Unspecified lump in the right breast, unspecified quadrant ==

== ENCOUNTER → 2022-04-30 | Outpatient (CLI) | payer OTHER | LOC: M WHC 08:35 | PROVIDERS: ATTEND Obstetrics & Gynecology | DX: R92.8 Other abnormal and inconclusive findings on diagnostic imaging of breast (principal) | CPT/HCPCS: 77065; G0279 ==

== ENCOUNTER → 2022-06-14 | Outpatient (CLI) | payer OTHER ==
[2022-06-14 14:31] LABS: BLOOD UREA NITROGEN 19 MG/DL (7-18); CALCIUM LEVEL 9.3 MG/DL (8.8-10.2); CARBON DIOXIDE LEVEL 32 MEQ/L (21-32); CHLORIDE LEVEL 106 MEQ/L (98-107); CREATININE FOR GFR 0.76 MG/DL (0.55-1.30); GLOMERULAR FILTRATION RATE > 60.0 (>45); GLUCOSE, FASTING 95 MG/DL (70-100); POTASSIUM SERUM 5.1 MEQ/L (3.5-5.1); SODIUM LEVEL 140 MEQ/L (136-145)
== END ==
LOC: M PLALAB 10:58
PROVIDERS: ATTEND Student in an Organized Health Care Education/Training Program
DX: R60.0 Localized edema (principal)

== ENCOUNTER → 2022-08-07 | Outpatient (CLI) | payer OTHER ==
[2022-08-07 15:52] LABS: BLOOD UREA NITROGEN 16 MG/DL (9-23); CALCIUM LEVEL 9.4 MG/DL (8.3-10.6); CARBON DIOXIDE LEVEL 31 MMOL/L (20-31); CHLORIDE LEVEL 103 MMOL/L (98-107); GLOMERULAR FILTRATION RATE > 60.0 (>45); GLUCOSE, FASTING 98 MG/DL (74-106); POTASSIUM SERUM 4.7 MMOL/L (3.5-5.1); SODIUM LEVEL 143 MMOL/L (136-145)
== END ==
LOC: M PLALAB 12:15
PROVIDERS: ATTEND Student in an Organized Health Care Education/Training Program
DX: R60.0 Localized edema (principal)

== ENCOUNTER → 2022-12-13 | Outpatient (REF) | payer OTHER | LOC: M SFHCWAGY 10:20 | PROVIDERS: ATTEND Obstetrics & Gynecology | DX: Z12.4 Encounter for screening for malignant neoplasm of cervix (principal) | CPT/HCPCS: 87624; G0123; G0463 ==

== ENCOUNTER → 2023-12-06 | Outpatient (CLI) | payer OTHER ==
[2023-12-06 12:41] LABS: BASO # 0.1 10^3/uL (0.0-0.2); BASO % 1.1 % (0.0-1.0); EOS # 0.2 10^3/uL (0.0-0.5); EOS % 3.8 % (0.0-3.0); HEMATOCRIT 41.7 % (36.0-47.0); HEMOGLOBIN 13.4 g/dl (12.0-15.5); LYMPH # 1.6 10^3/uL (1.5-5.0); LYMPH % 25.4 % (24.0-44.0); MEAN CORPUSCULAR HEMOGLOBIN 27.7 pg (27.0-33.0); MEAN CORPUSCULAR HGB CONC 32.1 g/dl (32.0-36.5); MEAN CORPUSCULAR VOLUME 86.2 fl (80.0-96.0); MONO # 0.7 10^3/uL (0.0-0.8); MONO % 10.5 % (2.0-8.0); NEUTROPHILS # 3.7 10^3/uL (1.5-8.5); NEUTROPHILS % 58.9 % (36.0-66.0); PLATELET COUNT, AUTOMATED 283 10^3/uL (150-450); RED BLOOD COUNT 4.84 10^6/uL (4.00-5.40); WHITE BLOOD COUNT 6.3 10^3/uL (4.0-10.0)
[2023-12-06 12:52] LABS: HEMOGLOBIN A1c 5.2 % (4.0-6.0)
[2023-12-06 13:07] LABS: FREE T4 1.27 NG/DL (0.89-1.76); THYROID STIMULATING HORMONE 2.802 uIU/ML (0.55-4.78); TOTAL 25(OH) VITAMIN D 40.6 NG/ML (20.0-100.0)
[2023-12-06 13:08] LABS: ALBUMIN 3.8 G/DL (3.2-5.2); ALKALINE PHOSPHATASE 73 U/L (46-116); ALT/SGPT 20 U/L (7.0-40); AST/SGOT 12 U/L (<34); BILIRUBIN,TOTAL 0.9 MG/DL (0.3-1.2); BLOOD UREA NITROGEN 16 MG/DL (9-23); CALCIUM LEVEL 9.3 MG/DL (8.3-10.6); CARBON DIOXIDE LEVEL 33 MMOL/L (20-31); CHLORIDE LEVEL 107 MMOL/L (98-107); CHOLESTEROL LEVEL 157 MG/DL (<200); CHOLESTEROL RISK RATIO 2.96 (<5); CREATININE FOR GFR 0.78 MG/DL (0.55-1.30); GLOMERULAR FILTRATION RATE > 60.0 (>45); GLUCOSE, FASTING 107 MG/DL (74-106); LDL CHOLESTEROL 82.6 MG/DL (<100); POTASSIUM SERUM 4.7 MMOL/L (3.5-5.1); SODIUM LEVEL 146 MMOL/L (136-145); TOTAL PROTEIN 6.7 G/DL (5.7-8.2); TRIGLYCERIDES LEVEL 107 MG/DL (<150)
== END ==
LOC: M PLALAB 09:07
PROVIDERS: ATTEND Physician Assistant
DX: Z00.00 Encounter for general adult medical examination without abnormal findings (principal); R60.0 Localized edema

== ENCOUNTER → 2024-02-10 | Outpatient (CLI) | payer OTHER ==
[~2024-02-10] MED LIST changes: +ROSU5TAB40; -ROSU5TAB5
== END ==
LOC: M PLAIMG 08:30
PROVIDERS: ATTEND Internal Medicine Cardiovascular Disease
DX: I51.7 Cardiomegaly (principal); R06.02 Shortness of breath; R94.31 Abnormal electrocardiogram [ECG] [EKG]

== ENCOUNTER → 2024-03-02 | Outpatient (CLI) | payer OTHER | LOC: M PLAIMG 14:01 | PROVIDERS: ATTEND Physician Assistant | DX: R06.02 Shortness of breath (principal) ==

== ENCOUNTER → 2024-04-17 | Outpatient (CLI) | payer OTHER | LOC: M WHC 07:57 | PROVIDERS: ATTEND Physician Assistant | DX: Z12.31 Encounter for screening mammogram for malignant neoplasm of breast (principal); Z78.0 Asymptomatic menopausal state; M85.89 Other specified disorders of bone density and structure, multiple sites; R92.333 Mammographic heterogeneous density, bilateral breasts ==

== ENCOUNTER → 2024-08-11 | Outpatient (CLI) | payer OTHER ==
[~2024-08-11] MED LIST changes: -ROSU5TAB40; +ROSU5TAB49
== END ==
LOC: M SLEEP HO 10:50
PROVIDERS: ATTEND Internal Medicine Critical Care Medicine
DX: G47.33 Obstructive sleep apnea (adult) (pediatric) (principal)

== ENCOUNTER → 2025-01-11 | Outpatient (CLI) | payer MEDICARE, OTHER | LOC: M SLEEP 20:00 | PROVIDERS: ATTEND Internal Medicine Critical Care Medicine | DX: G47.33 Obstructive sleep apnea (adult) (pediatric) (principal) ==

== ENCOUNTER → 2025-04-19 | Outpatient (CLI) | payer MEDICARE, OTHER | LOC: M WHC 08:39 | PROVIDERS: ATTEND Family Medicine | DX: Z12.31 Encounter for screening mammogram for malignant neoplasm of breast (principal); R92.323 Mammographic fibroglandular density, bilateral breasts; R92.8 Other abnormal and inconclusive findings on diagnostic imaging of breast ==

== ENCOUNTER → 2025-05-05 | Outpatient (CLI) | payer MEDICARE, OTHER | LOC: M WHC 13:29 | PROVIDERS: ATTEND Family Medicine | DX: R92.2 Inconclusive mammogram (principal) | CPT/HCPCS: 76642; 77065; G0279 ==

== ENCOUNTER 2025-05-30 12:44 | Emergency (ER) | payer MEDICARE, OTHER ==
[~2025-05-30] VITALS: Ht 162.6 cm; Wt 104.2 kg
[2025-05-30] MEDS ORDERED: AMOX875T2 PO (13:41)
[2025-05-30 13:45] VITALS: BP 115/64; TEMP 97.3; O2SAT 95
[2025-05-30] MEDS: AUGMENTIN 875 MG TAB PO ONE (13:53)
== END 2025-05-30 14:05 | disposition home or self-care (01) ==
LOC: M ED 12:44
DX: S71.131A Puncture wound without foreign body, right thigh, initial encounter (principal); W54.0XXA Bitten by dog, initial encounter; Y92.410 Unspecified street and highway as the place of occurrence of the external cause; Y93.9 Activity, unspecified; Y99.9 Unspecified external cause status; Z79.899 Other long term (current) drug therapy

== ENCOUNTER → 2025-06-23 | Outpatient (CLI) | payer MEDICARE, OTHER ==
[~2025-06-23] MED LIST changes: +AMOX875T2 PO
== END ==
LOC: M WUC 12:37
DX: M25.561 Pain in right knee (principal); M17.11 Unilateral primary osteoarthritis, right knee